=== PATIENT | male | born 1990 | race Caucasian/White ===

== ENCOUNTER 2018-06-02 11:20 | Emergency (ER) | payer OTHER ==
[~2018-06-02] VITALS: Ht 180.3 cm; Wt 104.3 kg
[2018-06-02] MEDS ORDERED: KEFLEX500 M1 PO (13:11)
[2018-06-02] MEDS ORDERED: NORCO 5-325 TA1 EACH PO (13:11)
[2018-06-02 13:27] VITALS: BP 108/71
== END 2018-06-02 13:28 | disposition home or self-care (01) ==
LOC: M.ERS 11:20
DX: S61.310A Laceration without foreign body of right index finger with damage to nail, initial encounter (principal); S61.312A Laceration without foreign body of right middle finger with damage to nail, initial encounter; W26.8XXA Contact with other sharp object(s), not elsewhere classified, initial encounter; Y93.89 Activity, other specified; Y92.89 Other specified places as the place of occurrence of the external cause; Y99.8 Other external cause status